=== PATIENT | male | born 1935 | race Caucasian/White ===

== ENCOUNTER 2016-07-29 09:09 | Outpatient (CLI) | payer MEDICARE, OTHER | END 2016-07-29 09:10 | disposition home or self-care (01) | DX: I82.4Z9 Acute embolism and thrombosis of unspecified deep veins of unspecified distal lower extremity (principal); D68.62 Lupus anticoagulant syndrome; I26.99 Other pulmonary embolism without acute cor pulmonale ==

== ENCOUNTER 2016-08-14 10:33 | Outpatient (CLI) | payer MEDICARE, OTHER | END 2016-08-14 10:34 | disposition home or self-care (01) | DX: I26.99 Other pulmonary embolism without acute cor pulmonale (principal); D68.62 Lupus anticoagulant syndrome; I82.4Z9 Acute embolism and thrombosis of unspecified deep veins of unspecified distal lower extremity ==

== ENCOUNTER 2016-09-11 13:18 | Outpatient (CLI) | payer MEDICARE, OTHER | END 2016-09-11 13:19 | disposition home or self-care (01) | DX: I26.99 Other pulmonary embolism without acute cor pulmonale (principal); D68.62 Lupus anticoagulant syndrome; I82.4Z9 Acute embolism and thrombosis of unspecified deep veins of unspecified distal lower extremity ==

== ENCOUNTER 2016-10-09 10:53 | Outpatient (CLI) | payer MEDICARE, OTHER | END 2016-10-09 10:54 | disposition home or self-care (01) | DX: Z79.01 Long term (current) use of anticoagulants (principal); D68.2 Hereditary deficiency of other clotting factors; D68.62 Lupus anticoagulant syndrome; I26.99 Other pulmonary embolism without acute cor pulmonale; I82.4Z9 Acute embolism and thrombosis of unspecified deep veins of unspecified distal lower extremity ==

== ENCOUNTER 2016-11-07 11:24 | Outpatient (CLI) | payer MEDICARE, OTHER | END 2016-11-07 11:25 | disposition home or self-care (01) | LOC: LAB.F 11:24 | DX: D68.2 Hereditary deficiency of other clotting factors (principal); I26.99 Other pulmonary embolism without acute cor pulmonale; D68.62 Lupus anticoagulant syndrome; I82.4Z9 Acute embolism and thrombosis of unspecified deep veins of unspecified distal lower extremity; Z79.01 Long term (current) use of anticoagulants | CPT/HCPCS: 85610 ==

== ENCOUNTER 2016-11-21 09:40 | Outpatient (CLI) | payer MEDICARE, OTHER | END 2016-11-21 09:41 | disposition home or self-care (01) | LOC: LAB.F 09:40 | DX: D68.2 Hereditary deficiency of other clotting factors (principal); I26.99 Other pulmonary embolism without acute cor pulmonale; D68.62 Lupus anticoagulant syndrome; I82.4Z9 Acute embolism and thrombosis of unspecified deep veins of unspecified distal lower extremity; Z79.01 Long term (current) use of anticoagulants | CPT/HCPCS: 85610 ==

== ENCOUNTER 2016-12-04 11:12 | Outpatient (CLI) | payer MEDICARE, OTHER | END 2016-12-04 11:13 | disposition home or self-care (01) | LOC: LAB.F 11:12 | DX: D68.2 Hereditary deficiency of other clotting factors (principal); D68.62 Lupus anticoagulant syndrome; I26.99 Other pulmonary embolism without acute cor pulmonale; I82.4Z9 Acute embolism and thrombosis of unspecified deep veins of unspecified distal lower extremity; Z79.01 Long term (current) use of anticoagulants | CPT/HCPCS: 85610 ==

== ENCOUNTER 2017-01-02 11:12 | Outpatient (CLI) | payer MEDICARE, OTHER | END 2017-01-02 11:13 | disposition home or self-care (01) | LOC: LAB.F 11:12 | DX: D68.2 Hereditary deficiency of other clotting factors (principal); D68.62 Lupus anticoagulant syndrome; I26.99 Other pulmonary embolism without acute cor pulmonale; I82.4Z9 Acute embolism and thrombosis of unspecified deep veins of unspecified distal lower extremity; Z79.01 Long term (current) use of anticoagulants | CPT/HCPCS: 85610 ==

== ENCOUNTER 2017-02-04 15:13 | Outpatient (CLI) | payer MEDICARE, OTHER | END 2017-02-04 15:14 | disposition home or self-care (01) | LOC: LAB.F 15:13 | DX: D68.2 Hereditary deficiency of other clotting factors (principal); D68.62 Lupus anticoagulant syndrome; I26.99 Other pulmonary embolism without acute cor pulmonale; I82.4Z9 Acute embolism and thrombosis of unspecified deep veins of unspecified distal lower extremity; Z79.01 Long term (current) use of anticoagulants | CPT/HCPCS: 85610 ==

== ENCOUNTER 2017-04-08 11:11 | Outpatient (CLI) | payer MEDICARE, OTHER | END 2017-04-08 11:12 | disposition home or self-care (01) | LOC: LAB.F 11:11 | DX: D68.2 Hereditary deficiency of other clotting factors (principal); D68.62 Lupus anticoagulant syndrome; I26.99 Other pulmonary embolism without acute cor pulmonale; I82.4Z9 Acute embolism and thrombosis of unspecified deep veins of unspecified distal lower extremity; Z79.01 Long term (current) use of anticoagulants | CPT/HCPCS: 85610 ==

== ENCOUNTER 2017-05-29 08:00 | Outpatient (CLI) | payer MEDICARE, OTHER | END 2017-05-29 08:01 | disposition home or self-care (01) | LOC: LAB.F 08:00 | PROVIDERS: ATTEND Pharmacist | DX: D68.2 Hereditary deficiency of other clotting factors (principal); Z79.01 Long term (current) use of anticoagulants; D68.62 Lupus anticoagulant syndrome; I26.99 Other pulmonary embolism without acute cor pulmonale; I82.4Z9 Acute embolism and thrombosis of unspecified deep veins of unspecified distal lower extremity | CPT/HCPCS: 85610 ==

== ENCOUNTER 2017-07-23 11:25 | Outpatient (CLI) | payer MEDICARE, OTHER | END 2017-07-23 11:26 | disposition home or self-care (01) | LOC: LAB.F 11:25 | PROVIDERS: ATTEND Pharmacist | DX: D68.2 Hereditary deficiency of other clotting factors (principal); D68.62 Lupus anticoagulant syndrome; I26.99 Other pulmonary embolism without acute cor pulmonale; I82.4Z9 Acute embolism and thrombosis of unspecified deep veins of unspecified distal lower extremity; Z79.01 Long term (current) use of anticoagulants | CPT/HCPCS: 85610 ==

== ENCOUNTER 2017-09-02 11:27 | Outpatient (CLI) | payer MEDICARE, OTHER | END 2017-09-02 11:28 | disposition home or self-care (01) | LOC: LAB.F 11:27 | PROVIDERS: ATTEND Student in an Organized Health Care Education/Training Program | DX: D68.2 Hereditary deficiency of other clotting factors (principal); D68.62 Lupus anticoagulant syndrome; I26.99 Other pulmonary embolism without acute cor pulmonale; I82.4Z9 Acute embolism and thrombosis of unspecified deep veins of unspecified distal lower extremity; Z79.01 Long term (current) use of anticoagulants | CPT/HCPCS: 85610 ==

== ENCOUNTER 2017-10-10 13:16 | Outpatient (CLI) | payer MEDICARE, OTHER | END 2017-10-10 13:17 | disposition home or self-care (01) | LOC: LAB.F 13:16 | PROVIDERS: ATTEND Pharmacist | DX: D68.2 Hereditary deficiency of other clotting factors (principal); D68.62 Lupus anticoagulant syndrome; I26.99 Other pulmonary embolism without acute cor pulmonale; I82.4Z9 Acute embolism and thrombosis of unspecified deep veins of unspecified distal lower extremity; Z79.01 Long term (current) use of anticoagulants | CPT/HCPCS: 85610 ==

== ENCOUNTER 2017-10-23 10:55 | Outpatient (CLI) | payer MEDICARE, OTHER | END 2017-10-23 10:56 | disposition home or self-care (01) | LOC: LAB.F 10:55 | PROVIDERS: ATTEND Pharmacist | DX: I26.99 Other pulmonary embolism without acute cor pulmonale (principal); D68.2 Hereditary deficiency of other clotting factors; D68.62 Lupus anticoagulant syndrome; I82.4Z9 Acute embolism and thrombosis of unspecified deep veins of unspecified distal lower extremity; Z79.01 Long term (current) use of anticoagulants | CPT/HCPCS: 85610 ==

== ENCOUNTER 2017-11-21 11:53 | Outpatient (CLI) | payer MEDICARE, OTHER | END 2017-11-21 11:54 | disposition home or self-care (01) | LOC: LAB.F 11:53 | PROVIDERS: ATTEND Pharmacist | DX: I26.99 Other pulmonary embolism without acute cor pulmonale (principal); D68.2 Hereditary deficiency of other clotting factors; D68.62 Lupus anticoagulant syndrome; I82.4Z9 Acute embolism and thrombosis of unspecified deep veins of unspecified distal lower extremity; Z79.01 Long term (current) use of anticoagulants | CPT/HCPCS: 85610 ==

== ENCOUNTER 2017-12-19 10:03 | Outpatient (CLI) | payer MEDICARE, OTHER | END 2017-12-19 10:04 | disposition home or self-care (01) | LOC: LAB.F 10:03 | PROVIDERS: ATTEND Pharmacist | DX: D68.2 Hereditary deficiency of other clotting factors (principal); Z79.01 Long term (current) use of anticoagulants; D68.62 Lupus anticoagulant syndrome; I26.99 Other pulmonary embolism without acute cor pulmonale; I82.4Z9 Acute embolism and thrombosis of unspecified deep veins of unspecified distal lower extremity | CPT/HCPCS: 85610 ==

== ENCOUNTER 2018-02-20 13:47 | Outpatient (CLI) | payer MEDICARE, OTHER | END 2018-02-20 13:48 | disposition home or self-care (01) | LOC: LAB.F 13:47 | PROVIDERS: ATTEND Pharmacist | DX: D68.2 Hereditary deficiency of other clotting factors (principal); Z79.01 Long term (current) use of anticoagulants; D68.62 Lupus anticoagulant syndrome; I26.99 Other pulmonary embolism without acute cor pulmonale; I82.4Z9 Acute embolism and thrombosis of unspecified deep veins of unspecified distal lower extremity | CPT/HCPCS: 85610 ==

== ENCOUNTER 2018-04-13 09:33 | Outpatient (CLI) | payer MEDICARE, OTHER | END 2018-04-13 09:34 | disposition home or self-care (01) | LOC: LAB.F 09:33 | PROVIDERS: ATTEND Pharmacist | DX: D68.2 Hereditary deficiency of other clotting factors (principal); D68.62 Lupus anticoagulant syndrome; I26.99 Other pulmonary embolism without acute cor pulmonale; I82.4Z9 Acute embolism and thrombosis of unspecified deep veins of unspecified distal lower extremity; Z79.01 Long term (current) use of anticoagulants | CPT/HCPCS: 85610 ==

== ENCOUNTER 2018-04-15 08:43 | Outpatient (CLI) | payer MEDICARE, OTHER | END 2018-04-15 08:44 | disposition home or self-care (01) | LOC: LAB.F 08:43 | PROVIDERS: ATTEND Pharmacist | DX: D68.2 Hereditary deficiency of other clotting factors (principal); D68.62 Lupus anticoagulant syndrome; Z79.01 Long term (current) use of anticoagulants; I26.99 Other pulmonary embolism without acute cor pulmonale; I82.4Z9 Acute embolism and thrombosis of unspecified deep veins of unspecified distal lower extremity | CPT/HCPCS: 85610 ==

== ENCOUNTER 2018-04-22 08:40 | Outpatient (CLI) | payer MEDICARE, OTHER | END 2018-04-22 08:41 | disposition home or self-care (01) | LOC: LAB.F 08:40 | PROVIDERS: ATTEND Pharmacist | DX: D68.2 Hereditary deficiency of other clotting factors (principal); Z79.01 Long term (current) use of anticoagulants; I26.99 Other pulmonary embolism without acute cor pulmonale; I82.4Z9 Acute embolism and thrombosis of unspecified deep veins of unspecified distal lower extremity | CPT/HCPCS: 85610 ==

== ENCOUNTER 2018-05-28 10:16 | Outpatient (CLI) | payer MEDICARE, OTHER | END 2018-05-28 10:17 | disposition home or self-care (01) | LOC: LAB.F 10:16 | PROVIDERS: ATTEND Pharmacist | DX: D68.2 Hereditary deficiency of other clotting factors (principal); D68.62 Lupus anticoagulant syndrome; I26.99 Other pulmonary embolism without acute cor pulmonale; I82.4Z9 Acute embolism and thrombosis of unspecified deep veins of unspecified distal lower extremity; Z79.01 Long term (current) use of anticoagulants | CPT/HCPCS: 85610 ==

== ENCOUNTER 2018-06-24 08:33 | Outpatient (CLI) | payer MEDICARE, OTHER | END 2018-06-24 08:34 | disposition home or self-care (01) | LOC: LAB.F 08:33 | PROVIDERS: ATTEND Pharmacist | DX: D68.2 Hereditary deficiency of other clotting factors (principal); Z79.01 Long term (current) use of anticoagulants; D68.62 Lupus anticoagulant syndrome; I26.99 Other pulmonary embolism without acute cor pulmonale; I82.4Z9 Acute embolism and thrombosis of unspecified deep veins of unspecified distal lower extremity | CPT/HCPCS: 85610 ==

== ENCOUNTER 2018-07-28 11:07 | Outpatient (CLI) | payer MEDICARE, OTHER | END 2018-07-28 11:08 | disposition home or self-care (01) | LOC: LAB.F 11:07 | PROVIDERS: ATTEND Pharmacist | DX: D68.2 Hereditary deficiency of other clotting factors (principal); D68.62 Lupus anticoagulant syndrome; I26.99 Other pulmonary embolism without acute cor pulmonale; I82.4Z9 Acute embolism and thrombosis of unspecified deep veins of unspecified distal lower extremity; Z79.01 Long term (current) use of anticoagulants | CPT/HCPCS: 85610 ==

== ENCOUNTER 2018-09-23 11:29 | Outpatient (CLI) | payer MEDICARE, OTHER | END 2018-09-23 11:30 | disposition home or self-care (01) | LOC: LAB.F 11:29 | PROVIDERS: ATTEND Pharmacist | DX: D68.2 Hereditary deficiency of other clotting factors (principal); D68.62 Lupus anticoagulant syndrome; I26.99 Other pulmonary embolism without acute cor pulmonale; I82.4Z9 Acute embolism and thrombosis of unspecified deep veins of unspecified distal lower extremity; Z79.01 Long term (current) use of anticoagulants | CPT/HCPCS: 85610 ==

== ENCOUNTER 2018-11-17 09:07 | Outpatient (CLI) | payer MEDICARE, OTHER | END 2018-11-17 09:08 | disposition home or self-care (01) | LOC: LAB.F 09:07 | PROVIDERS: ATTEND Pharmacist | DX: D68.2 Hereditary deficiency of other clotting factors (principal); D68.62 Lupus anticoagulant syndrome; I26.99 Other pulmonary embolism without acute cor pulmonale; I82.4Z9 Acute embolism and thrombosis of unspecified deep veins of unspecified distal lower extremity; Z79.01 Long term (current) use of anticoagulants | CPT/HCPCS: 85610 ==

== ENCOUNTER 2018-11-30 07:42 | Outpatient (CLI) | payer MEDICARE, OTHER | END 2018-11-30 07:43 | disposition home or self-care (01) | LOC: LAB.F 07:42 | PROVIDERS: ATTEND Pharmacist | DX: D68.2 Hereditary deficiency of other clotting factors (principal); D68.62 Lupus anticoagulant syndrome; I26.99 Other pulmonary embolism without acute cor pulmonale; I82.4Z9 Acute embolism and thrombosis of unspecified deep veins of unspecified distal lower extremity; Z79.01 Long term (current) use of anticoagulants | CPT/HCPCS: 85610 ==

== ENCOUNTER 2018-12-01 07:20 | Outpatient (CLI) | payer MEDICARE, OTHER | END 2018-12-01 07:21 | disposition home or self-care (01) | LOC: LAB.F 07:20 | PROVIDERS: ATTEND Pharmacist | DX: D68.2 Hereditary deficiency of other clotting factors (principal); D68.62 Lupus anticoagulant syndrome; I26.99 Other pulmonary embolism without acute cor pulmonale; I82.4Z9 Acute embolism and thrombosis of unspecified deep veins of unspecified distal lower extremity; Z79.01 Long term (current) use of anticoagulants | CPT/HCPCS: 85610 ==

== ENCOUNTER 2018-12-02 07:57 | Outpatient (CLI) | payer MEDICARE, OTHER | END 2018-12-02 07:58 | disposition home or self-care (01) | LOC: LAB.F 07:57 | PROVIDERS: ATTEND Pharmacist | DX: D68.2 Hereditary deficiency of other clotting factors (principal); D68.62 Lupus anticoagulant syndrome; I26.99 Other pulmonary embolism without acute cor pulmonale; I82.4Z9 Acute embolism and thrombosis of unspecified deep veins of unspecified distal lower extremity; Z79.01 Long term (current) use of anticoagulants | CPT/HCPCS: 85610 ==

== ENCOUNTER 2018-12-03 08:00 | Outpatient (CLI) | payer MEDICARE, OTHER | END 2018-12-03 23:59 | disposition home or self-care (01) | LOC: LAB.F 08:00 | PROVIDERS: ATTEND Pharmacist | DX: D68.2 Hereditary deficiency of other clotting factors (principal); D68.62 Lupus anticoagulant syndrome; I26.99 Other pulmonary embolism without acute cor pulmonale; I82.4Z9 Acute embolism and thrombosis of unspecified deep veins of unspecified distal lower extremity; Z79.01 Long term (current) use of anticoagulants | CPT/HCPCS: 85610 ==

== ENCOUNTER 2018-12-16 13:25 | Outpatient (CLI) | payer MEDICARE, OTHER | END 2018-12-16 13:26 | disposition home or self-care (01) | LOC: LAB.F 13:25 | PROVIDERS: ATTEND Pharmacist | DX: D68.2 Hereditary deficiency of other clotting factors (principal); D68.62 Lupus anticoagulant syndrome; I26.99 Other pulmonary embolism without acute cor pulmonale; I82.4Z9 Acute embolism and thrombosis of unspecified deep veins of unspecified distal lower extremity; Z79.01 Long term (current) use of anticoagulants | CPT/HCPCS: 85610 ==

== ENCOUNTER 2018-12-30 10:23 | Outpatient (CLI) | payer MEDICARE, OTHER | END 2018-12-30 10:24 | disposition home or self-care (01) | LOC: LAB.S 10:23 | PROVIDERS: ATTEND Student in an Organized Health Care Education/Training Program | DX: D68.2 Hereditary deficiency of other clotting factors (principal); D68.62 Lupus anticoagulant syndrome; I26.99 Other pulmonary embolism without acute cor pulmonale; I82.4Z9 Acute embolism and thrombosis of unspecified deep veins of unspecified distal lower extremity; Z79.01 Long term (current) use of anticoagulants | CPT/HCPCS: 85610 ==

== ENCOUNTER 2019-01-04 08:12 | Outpatient (CLI) | payer MEDICARE, OTHER | END 2019-01-04 08:13 | disposition home or self-care (01) | LOC: LAB.S 08:12 | PROVIDERS: ATTEND Student in an Organized Health Care Education/Training Program | DX: D68.2 Hereditary deficiency of other clotting factors (principal); D68.62 Lupus anticoagulant syndrome; I26.99 Other pulmonary embolism without acute cor pulmonale; I82.4Z9 Acute embolism and thrombosis of unspecified deep veins of unspecified distal lower extremity; Z79.01 Long term (current) use of anticoagulants | CPT/HCPCS: 85610 ==

== ENCOUNTER 2019-01-13 11:28 | Outpatient (CLI) | payer MEDICARE, OTHER | END 2019-01-13 11:29 | disposition home or self-care (01) | LOC: LAB.S 11:28 | PROVIDERS: ATTEND Pharmacist | DX: D68.2 Hereditary deficiency of other clotting factors (principal); D68.62 Lupus anticoagulant syndrome; I26.99 Other pulmonary embolism without acute cor pulmonale; I82.4Z9 Acute embolism and thrombosis of unspecified deep veins of unspecified distal lower extremity; Z79.01 Long term (current) use of anticoagulants | CPT/HCPCS: 85610 ==

== ENCOUNTER 2019-02-12 10:12 | Outpatient (CLI) | payer MEDICARE, OTHER | END 2019-02-12 10:13 | disposition home or self-care (01) | LOC: LAB.S 10:12 | PROVIDERS: ATTEND Pharmacist | DX: D68.2 Hereditary deficiency of other clotting factors (principal); D68.62 Lupus anticoagulant syndrome; I26.99 Other pulmonary embolism without acute cor pulmonale; I82.4Z9 Acute embolism and thrombosis of unspecified deep veins of unspecified distal lower extremity; Z79.01 Long term (current) use of anticoagulants | CPT/HCPCS: 85610 ==

== ENCOUNTER 2019-03-03 13:31 | Outpatient (CLI) | payer MEDICARE, OTHER | END 2019-03-03 13:32 | disposition home or self-care (01) | LOC: LAB.S 13:31 | PROVIDERS: ATTEND Pharmacist | DX: D68.2 Hereditary deficiency of other clotting factors (principal); D68.62 Lupus anticoagulant syndrome; I26.99 Other pulmonary embolism without acute cor pulmonale; I82.4Z9 Acute embolism and thrombosis of unspecified deep veins of unspecified distal lower extremity; Z79.01 Long term (current) use of anticoagulants | CPT/HCPCS: 85610 ==

== ENCOUNTER 2019-03-22 09:30 | Outpatient (CLI) | payer MEDICARE, OTHER | END 2019-03-22 09:31 | disposition home or self-care (01) | LOC: LAB.S 09:30 | PROVIDERS: ATTEND Pharmacist | DX: D68.2 Hereditary deficiency of other clotting factors (principal); I26.99 Other pulmonary embolism without acute cor pulmonale; I82.4Z9 Acute embolism and thrombosis of unspecified deep veins of unspecified distal lower extremity; Z79.01 Long term (current) use of anticoagulants | CPT/HCPCS: 85610 ==

== ENCOUNTER 2019-04-05 09:01 | Outpatient (CLI) | payer MEDICARE, OTHER | END 2019-04-05 09:02 | disposition home or self-care (01) | LOC: LAB.S 09:01 | PROVIDERS: ATTEND Pharmacist | DX: D68.2 Hereditary deficiency of other clotting factors (principal); D68.62 Lupus anticoagulant syndrome; I26.99 Other pulmonary embolism without acute cor pulmonale; I82.4Z9 Acute embolism and thrombosis of unspecified deep veins of unspecified distal lower extremity; Z79.01 Long term (current) use of anticoagulants | CPT/HCPCS: 85610 ==

== ENCOUNTER 2019-05-04 09:06 | Outpatient (CLI) | payer MEDICARE, OTHER | END 2019-05-04 09:07 | disposition home or self-care (01) | LOC: LAB.S 09:06 | PROVIDERS: ATTEND Pharmacist | DX: D68.2 Hereditary deficiency of other clotting factors (principal); D68.62 Lupus anticoagulant syndrome; I26.99 Other pulmonary embolism without acute cor pulmonale; I82.4Z9 Acute embolism and thrombosis of unspecified deep veins of unspecified distal lower extremity; Z79.01 Long term (current) use of anticoagulants | CPT/HCPCS: 85610 ==

== ENCOUNTER 2019-06-01 09:21 | Outpatient (CLI) | payer MEDICARE, OTHER | END 2019-06-01 09:22 | disposition home or self-care (01) | LOC: LAB.S 09:21 | PROVIDERS: ATTEND Pharmacist | DX: D68.2 Hereditary deficiency of other clotting factors (principal); D68.62 Lupus anticoagulant syndrome; I26.99 Other pulmonary embolism without acute cor pulmonale; I82.4Z9 Acute embolism and thrombosis of unspecified deep veins of unspecified distal lower extremity; Z79.01 Long term (current) use of anticoagulants | CPT/HCPCS: 85610 ==

== ENCOUNTER 2019-07-06 08:00 | Outpatient (CLI) | payer MEDICARE, OTHER | END 2019-07-06 23:59 | disposition home or self-care (01) | LOC: LAB.S 08:00 | PROVIDERS: ATTEND Pharmacist | DX: D68.2 Hereditary deficiency of other clotting factors (principal); D68.62 Lupus anticoagulant syndrome; I26.99 Other pulmonary embolism without acute cor pulmonale; I82.4Z9 Acute embolism and thrombosis of unspecified deep veins of unspecified distal lower extremity; Z79.01 Long term (current) use of anticoagulants | CPT/HCPCS: 85610 ==

== ENCOUNTER 2019-07-20 10:06 | Outpatient (CLI) | payer MEDICARE, OTHER | END 2019-07-20 10:07 | disposition home or self-care (01) | LOC: LAB.S 10:06 | PROVIDERS: ATTEND Pharmacist | DX: D68.2 Hereditary deficiency of other clotting factors (principal); D68.62 Lupus anticoagulant syndrome; I26.99 Other pulmonary embolism without acute cor pulmonale; I82.4Z9 Acute embolism and thrombosis of unspecified deep veins of unspecified distal lower extremity; Z79.01 Long term (current) use of anticoagulants | CPT/HCPCS: 85610 ==

== ENCOUNTER 2019-08-05 08:00 | Outpatient (CLI) | payer MEDICARE, OTHER | END 2019-08-05 23:59 | disposition home or self-care (01) | LOC: LAB.S 08:00 | PROVIDERS: ATTEND Pharmacist | DX: D68.2 Hereditary deficiency of other clotting factors (principal); D68.62 Lupus anticoagulant syndrome; I26.99 Other pulmonary embolism without acute cor pulmonale; I82.4Z9 Acute embolism and thrombosis of unspecified deep veins of unspecified distal lower extremity; Z79.01 Long term (current) use of anticoagulants | CPT/HCPCS: 85610 ==

== ENCOUNTER 2019-10-04 13:16 | Outpatient (CLI) | payer MEDICARE, OTHER | END 2019-10-04 13:17 | disposition home or self-care (01) | LOC: LAB 13:16 | PROVIDERS: ATTEND Pharmacist | DX: D68.2 Hereditary deficiency of other clotting factors (principal); D68.62 Lupus anticoagulant syndrome; I26.99 Other pulmonary embolism without acute cor pulmonale; I82.4Z9 Acute embolism and thrombosis of unspecified deep veins of unspecified distal lower extremity; Z79.01 Long term (current) use of anticoagulants | CPT/HCPCS: 85610 ==

== ENCOUNTER 2019-11-03 07:42 | Outpatient (CLI) | payer MEDICARE, OTHER | END 2019-11-03 07:43 | disposition home or self-care (01) | LOC: LAB 07:42 | PROVIDERS: ATTEND Pharmacist | DX: D68.2 Hereditary deficiency of other clotting factors (principal); D68.62 Lupus anticoagulant syndrome; I26.99 Other pulmonary embolism without acute cor pulmonale; I82.4Z9 Acute embolism and thrombosis of unspecified deep veins of unspecified distal lower extremity; Z79.01 Long term (current) use of anticoagulants | CPT/HCPCS: 85610 ==

== ENCOUNTER 2020-01-11 11:50 | Outpatient (CLI) | payer MEDICARE, OTHER ==
[2020-01-11 12:22] LABS: CALCIUM 8.1 mg/dL (8.5-10.3); CREATININE 1.1 mg/dL (0.6-1.2)
== END 2020-01-11 11:51 | disposition home or self-care (01) ==
LOC: LAB 11:50
PROVIDERS: ATTEND Pharmacist Ambulatory Care
DX: D68.2 Hereditary deficiency of other clotting factors (principal); D68.62 Lupus anticoagulant syndrome; Z79.01 Long term (current) use of anticoagulants; I26.99 Other pulmonary embolism without acute cor pulmonale; I82.4Z9 Acute embolism and thrombosis of unspecified deep veins of unspecified distal lower extremity
CPT/HCPCS: 36415; 80048; 85610

== ENCOUNTER 2020-01-21 10:09 | Outpatient (CLI) | payer MEDICARE, OTHER | END 2020-01-21 10:10 | disposition home or self-care (01) | LOC: LAB.S 10:09 | PROVIDERS: ATTEND Pharmacist Ambulatory Care | DX: D68.2 Hereditary deficiency of other clotting factors (principal); D68.62 Lupus anticoagulant syndrome; I26.99 Other pulmonary embolism without acute cor pulmonale; I82.4Z9 Acute embolism and thrombosis of unspecified deep veins of unspecified distal lower extremity; Z79.01 Long term (current) use of anticoagulants | CPT/HCPCS: 85610 ==

== ENCOUNTER 2020-01-26 08:34 | Outpatient (CLI) | payer MEDICARE, OTHER | END 2020-01-26 08:35 | disposition home or self-care (01) | LOC: LAB.S 08:34 | PROVIDERS: ATTEND Pharmacist Ambulatory Care | DX: D68.2 Hereditary deficiency of other clotting factors (principal); D68.62 Lupus anticoagulant syndrome; I26.99 Other pulmonary embolism without acute cor pulmonale; I82.4Z9 Acute embolism and thrombosis of unspecified deep veins of unspecified distal lower extremity; Z79.01 Long term (current) use of anticoagulants | CPT/HCPCS: 85610 ==

== ENCOUNTER 2020-02-21 11:38 | Outpatient (CLI) | payer MEDICARE, OTHER | END 2020-02-21 11:39 | disposition home or self-care (01) | LOC: LAB.S 11:38 | PROVIDERS: ATTEND Pharmacist Ambulatory Care | DX: D68.2 Hereditary deficiency of other clotting factors (principal); D68.62 Lupus anticoagulant syndrome; I26.99 Other pulmonary embolism without acute cor pulmonale; I82.4Z9 Acute embolism and thrombosis of unspecified deep veins of unspecified distal lower extremity; Z79.01 Long term (current) use of anticoagulants | CPT/HCPCS: 85610 ==

== ENCOUNTER 2020-03-15 12:06 | Outpatient (CLI) | payer MEDICARE, OTHER | END 2020-03-15 12:07 | disposition home or self-care (01) | LOC: LAB.S 12:06 | PROVIDERS: ATTEND Pharmacist Ambulatory Care | DX: D68.2 Hereditary deficiency of other clotting factors (principal); D68.62 Lupus anticoagulant syndrome; I26.99 Other pulmonary embolism without acute cor pulmonale; I82.4Z9 Acute embolism and thrombosis of unspecified deep veins of unspecified distal lower extremity; Z79.01 Long term (current) use of anticoagulants | CPT/HCPCS: 85610 ==

== ENCOUNTER 2020-04-17 09:53 | Outpatient (CLI) | payer MEDICARE, OTHER | END 2020-04-17 09:54 | disposition home or self-care (01) | LOC: LAB.S 09:53 | PROVIDERS: ATTEND Pharmacist Ambulatory Care | DX: D68.2 Hereditary deficiency of other clotting factors (principal); D68.62 Lupus anticoagulant syndrome; I26.99 Other pulmonary embolism without acute cor pulmonale; I82.4Z9 Acute embolism and thrombosis of unspecified deep veins of unspecified distal lower extremity; Z79.01 Long term (current) use of anticoagulants | CPT/HCPCS: 85610 ==

== ENCOUNTER 2020-05-29 07:24 | Outpatient (CLI) | payer MEDICARE, OTHER | END 2020-05-29 07:25 | disposition home or self-care (01) | LOC: LAB.S 07:24 | PROVIDERS: ATTEND Pharmacist Ambulatory Care | DX: D68.2 Hereditary deficiency of other clotting factors (principal); D68.62 Lupus anticoagulant syndrome; I26.99 Other pulmonary embolism without acute cor pulmonale; I82.4Z9 Acute embolism and thrombosis of unspecified deep veins of unspecified distal lower extremity; Z79.01 Long term (current) use of anticoagulants | CPT/HCPCS: 85610 ==

== ENCOUNTER 2020-07-10 14:26 | Outpatient (CLI) | payer MEDICARE, OTHER | END 2020-07-10 14:27 | disposition home or self-care (01) | LOC: LAB.S 14:26 | PROVIDERS: ATTEND Student in an Organized Health Care Education/Training Program | DX: D68.2 Hereditary deficiency of other clotting factors (principal); D68.62 Lupus anticoagulant syndrome; I26.99 Other pulmonary embolism without acute cor pulmonale; I82.4Z9 Acute embolism and thrombosis of unspecified deep veins of unspecified distal lower extremity; Z79.01 Long term (current) use of anticoagulants | CPT/HCPCS: 85610 ==

== ENCOUNTER 2020-08-22 14:35 | Outpatient (CLI) | payer MEDICARE, OTHER | END 2020-08-22 14:36 | disposition home or self-care (01) | LOC: LAB.S 14:35 | PROVIDERS: ATTEND Student in an Organized Health Care Education/Training Program | DX: D68.2 Hereditary deficiency of other clotting factors (principal); D68.62 Lupus anticoagulant syndrome; I26.99 Other pulmonary embolism without acute cor pulmonale; I82.4Z9 Acute embolism and thrombosis of unspecified deep veins of unspecified distal lower extremity; Z79.01 Long term (current) use of anticoagulants | CPT/HCPCS: 85610 ==

== ENCOUNTER 2020-09-11 09:03 | Outpatient (CLI) | payer MEDICARE, OTHER | END 2020-09-11 09:04 | disposition home or self-care (01) | LOC: LAB.S 09:03 | PROVIDERS: ATTEND Student in an Organized Health Care Education/Training Program | DX: D68.2 Hereditary deficiency of other clotting factors (principal); I82.4Z9 Acute embolism and thrombosis of unspecified deep veins of unspecified distal lower extremity; I26.99 Other pulmonary embolism without acute cor pulmonale; Z79.01 Long term (current) use of anticoagulants; D68.62 Lupus anticoagulant syndrome | CPT/HCPCS: 85610 ==

== ENCOUNTER 2020-10-05 13:32 | Outpatient (CLI) | payer MEDICARE, OTHER | END 2020-10-05 13:33 | disposition home or self-care (01) | LOC: LAB.S 13:32 | PROVIDERS: ATTEND Student in an Organized Health Care Education/Training Program | DX: D68.2 Hereditary deficiency of other clotting factors (principal); D68.62 Lupus anticoagulant syndrome; I26.99 Other pulmonary embolism without acute cor pulmonale; I82.4Z9 Acute embolism and thrombosis of unspecified deep veins of unspecified distal lower extremity; Z79.01 Long term (current) use of anticoagulants | CPT/HCPCS: 85610 ==

== ENCOUNTER 2020-10-31 10:24 | Outpatient (CLI) | payer MEDICARE, OTHER | END 2020-10-31 10:25 | disposition home or self-care (01) | LOC: LAB.S 10:24 | PROVIDERS: ATTEND Student in an Organized Health Care Education/Training Program | DX: D68.2 Hereditary deficiency of other clotting factors (principal); D68.62 Lupus anticoagulant syndrome; I26.99 Other pulmonary embolism without acute cor pulmonale; I82.4Z9 Acute embolism and thrombosis of unspecified deep veins of unspecified distal lower extremity; Z79.01 Long term (current) use of anticoagulants | CPT/HCPCS: 36416; 85610 ==

== ENCOUNTER 2020-12-07 11:27 | Outpatient (CLI) | payer MEDICARE, OTHER | END 2020-12-07 11:28 | disposition home or self-care (01) | LOC: LAB.S 11:27 | PROVIDERS: ATTEND Student in an Organized Health Care Education/Training Program | DX: D68.2 Hereditary deficiency of other clotting factors (principal); D68.62 Lupus anticoagulant syndrome; I26.99 Other pulmonary embolism without acute cor pulmonale; I82.4Z9 Acute embolism and thrombosis of unspecified deep veins of unspecified distal lower extremity; Z79.01 Long term (current) use of anticoagulants | CPT/HCPCS: 36416; 85610 ==

== ENCOUNTER 2020-12-22 15:30 | Outpatient (CLI) | payer MEDICARE, OTHER | END 2020-12-22 15:31 | disposition home or self-care (01) | LOC: LAB.S 15:30 | PROVIDERS: ATTEND Student in an Organized Health Care Education/Training Program | DX: D68.2 Hereditary deficiency of other clotting factors (principal); D68.62 Lupus anticoagulant syndrome; I82.4Z9 Acute embolism and thrombosis of unspecified deep veins of unspecified distal lower extremity; I26.99 Other pulmonary embolism without acute cor pulmonale; Z79.01 Long term (current) use of anticoagulants | CPT/HCPCS: 85610 ==

== ENCOUNTER 2021-01-11 11:22 | Outpatient (CLI) | payer MEDICARE, OTHER | END 2021-01-11 11:23 | disposition home or self-care (01) | LOC: LAB.S 11:22 | PROVIDERS: ATTEND Student in an Organized Health Care Education/Training Program | DX: D68.2 Hereditary deficiency of other clotting factors (principal); I26.99 Other pulmonary embolism without acute cor pulmonale; I82.4Z9 Acute embolism and thrombosis of unspecified deep veins of unspecified distal lower extremity; Z79.01 Long term (current) use of anticoagulants; D68.62 Lupus anticoagulant syndrome | CPT/HCPCS: 36416; 85610 ==

== ENCOUNTER 2021-02-13 16:01 | Outpatient (CLI) | payer MEDICARE, OTHER | END 2021-02-13 16:02 | disposition home or self-care (01) | LOC: COV 16:01 | PROVIDERS: ATTEND Family Medicine | DX: Z20.822 Contact with and (suspected) exposure to COVID-19 (principal) ==

== ENCOUNTER 2021-02-15 12:02 | Outpatient (CLI) | payer MEDICARE, OTHER | END 2021-02-15 12:03 | disposition home or self-care (01) | LOC: LAB.S 12:02 | PROVIDERS: ATTEND Student in an Organized Health Care Education/Training Program | DX: D68.2 Hereditary deficiency of other clotting factors (principal); D68.62 Lupus anticoagulant syndrome; I26.99 Other pulmonary embolism without acute cor pulmonale; I82.4Z9 Acute embolism and thrombosis of unspecified deep veins of unspecified distal lower extremity; Z79.01 Long term (current) use of anticoagulants | CPT/HCPCS: 36416; 85610 ==

== ENCOUNTER 2021-03-22 13:32 | Outpatient (CLI) | payer MEDICARE, OTHER | END 2021-03-22 13:33 | disposition home or self-care (01) | LOC: LAB.S 13:32 | PROVIDERS: ATTEND Student in an Organized Health Care Education/Training Program | DX: D68.2 Hereditary deficiency of other clotting factors (principal); I27.82 Chronic pulmonary embolism; I48.0 Paroxysmal atrial fibrillation; I82.5Z9 Chronic embolism and thrombosis of unspecified deep veins of unspecified distal lower extremity; D68.62 Lupus anticoagulant syndrome | CPT/HCPCS: 36415; 36416; 80053; 85025; 85520; 85610 ==

== ENCOUNTER 2021-04-20 11:18 | Outpatient (CLI) | payer MEDICARE, OTHER | END 2021-04-20 11:19 | disposition home or self-care (01) | LOC: LAB.S 11:18 | PROVIDERS: ATTEND Pharmacist | DX: Z79.01 Long term (current) use of anticoagulants (principal); D68.2 Hereditary deficiency of other clotting factors; I48.0 Paroxysmal atrial fibrillation; I27.82 Chronic pulmonary embolism; D68.62 Lupus anticoagulant syndrome; I82.5Z9 Chronic embolism and thrombosis of unspecified deep veins of unspecified distal lower extremity | CPT/HCPCS: 36416; 85610 ==

== ENCOUNTER 2021-06-01 08:28 | Outpatient (CLI) | payer MEDICARE, OTHER ==
[2021-06-01 08:59] LABS: INR 1.3 (0.8-1.2); PT - PROTHROMBIN TIME 14.6 secs (9.9-12.6)
== END 2021-06-01 08:29 | disposition home or self-care (01) ==
LOC: LAB 08:28
PROVIDERS: ATTEND Pharmacist
DX: Z79.01 Long term (current) use of anticoagulants (principal); D68.2 Hereditary deficiency of other clotting factors; I48.0 Paroxysmal atrial fibrillation; I27.82 Chronic pulmonary embolism; I82.5Z9 Chronic embolism and thrombosis of unspecified deep veins of unspecified distal lower extremity; D68.62 Lupus anticoagulant syndrome
CPT/HCPCS: 36415; 85610

== ENCOUNTER 2021-06-04 04:12 | Emergency (ER) | payer MEDICARE, OTHER ==
--- NOTE | 2021-06-04 05:25 | ED Physician Documentation ---
History of Present Illness - Stated complaint Stated Complaint: DRAIN TUBE PLUGGED - Chief complaint Chief Complaint: General - History obtained from History obtained from: Patient - History of Present Illness Timing: Yesterday Pain level now: 3 - Additonal information Additional information: patient underwent bilateral mastectomy 6 days ago for breast CA, with bilateral CARL drains in place. He notes the left CARL drain has continued to steadily drain but the right drain stopped draining yesterday afternoon and the right side of his chest has steadily become increasingly swollen, painful, and echymotic. Patient takes warfarin for atrial fibrillation Review of Systems Constitutional: denies: Fever, Chills, Sweats Cardiac: reports: Chest pain / pressure (chest wall pain/swelling). denies: Palpitations Respiratory: reports: Reviewed and negative GI: reports: Reviewed and negative PD PAST MEDICAL HISTORY - Past Medical History Past Medical History: Yes Cardiovascular: Atrial fibrillation Psych: Anxiety Other Past Medical History: Bilat breast CA - Past Surgical History Past Surgical History: Yes General: Appendectomy, Other - Present Medications Home Medications: Ambulatory Orders Medication Instructions Recorded Confirmed Amiodarone HCl 100 mg PO DAILY 06/04/21 06/04/21 Fluoxetine HCl [Prozac] 20 mg PO DAILY 06/04/21 06/04/21 Multivitamin 1 tab PO DAILY 06/04/21 06/04/21 Warfarin [Coumadin] 2.5 mg PO 06/04/21 Warfarin [Coumadin] 5 mg PO 06/04/21 - Allergies Allergies/Adverse Reactions: Allergies Allergy/AdvReac Type Severity Reaction Status Date / Time No Known Drug Allergies Allergy Verified 06/04/21 04:30 - Social History Does the pt smoke?: No Smoking Status: Never smoker Does the pt drink ETOH?: Yes ETOH Use: Liquor Does the pt have substance abuse?: No - Immunizations Immunizations are current?: Yes - POLST Patient has POLST: No PD ED PE NORMAL - Vitals Vital signs reviewed: Yes - General General: Alert and oriented X 3, No acute distress, Well developed/nourished PD ED PE EXPANDED - Cardiac Cardiac: Chest wall TTP (right chest wall is diffusely echymotic, swollen but not tense, with TTP lateral aspect. no erythema, not hot to touch, no fluctuance. CARL drain in place with clotted blood in tubing. left chest CARL drain with serosanguinous drainage in tubing and bulb) Results - Vitals Vitals: Oxygen O2 Source Room air - Labs Labs: Laboratory Tests 06/04/21 06/04/21 05:58 05:58 WBC 8.3 RBC 3.54 L Hgb 11.2 L Hct 33.7 L MCV 95.2 H MCH 31.6 H MCHC 33.2 RDW 13.5 Plt Count 209 MPV 9.2 Neut # (Auto) 6.0 Lymph # (Auto) 1.2 L [place] # (Auto) 0.9 Eos # (Auto) 0.1 Baso # (Auto) 0.1 Absolute Nucleated RBC 0.00 Nucleated RBC % 0.0 PT 25.5 H INR 2.3 H APTT 41.6 H PD MEDICAL DECISION MAKING - ED course Complexity details: reviewed results, re-evaluated patient, considered differential, d/w patient ED course: INR 2.3, hgb 11.1, normal WBC. I stripped the right CARL drain's tubing (patient says he has been trying this man y times), which milked the clot in the tubing into the drain but this did not result in any further output into the drain/tubing. I discussed this case with Dr. Best (oncology at [place], covering for Dr. Mendieta (who had performed the surgery)). Dr. Best says patient has been in contact with him regarding this problem over the past 24 hours; plan is to arrange for expedited follow up within next 1-2 days. Patient is to expect to be contacted by the office later this morning to discuss follow up and I relayed this to the patient. At this time, there is no evidence of infection; there is no tense swelling to suggest imminent risk of skin necrosis. Patient is comfortable with this plan. Dr. Best also recommended HOWIE bandage for compression to effect tamponade, and this was placed by ED RN Departure - Departure Disposition: 01 Home, Self Care Clinical Impression: Postoperative wound hematoma Condition: Good Instructions: ED Hematoma, ED Wound Check Post Op Bleeding Comments: You should receive a call from the oncology office this morning with instruction on timing of follow-up Discharge Date/Time: 06/04/21 06:48
[2021-06-04 06:05] LABS: BASOPHILS # (AUTO) 0.1 10^3/uL (0.0-0.1); EOSINOPHILS # (AUTO) 0.1 10^3/uL (0.0-0.7); EOSINOPHILS % (AUTO) 1.3 %; HCT - HEMATOCRIT 33.7 % (42.0-52.0); HGB - HEMOGLOBIN 11.2 g/dL (14.0-18.0); LYMPHOCYTES # (AUTO) 1.2 10^3/uL (1.5-3.5); LYMPHOCYTES % (AUTO) 14.2 %; MEAN CORPUSCULAR HEMOGLOBIN 31.6 pg (27.0-31.0); MEAN CORPUSCULAR HGB CONC 33.2 g/dL (32.0-36.0); MEAN CORPUSCULAR VOLUME 95.2 fL (80.0-94.0); MEAN PLATELET VOLUME 9.2 fL (7.4-11.4); MONOCYTES # (AUTO) 0.9 10^3/uL (0.0-1.0); MONOCYTES % (AUTO) 11.3 %; NEUTROPHILS % (AUTO) 71.8 %; PLT - PLATELET COUNT 209 10^3/uL (130-450); RED BLOOD COUNT 3.54 10^6/uL (4.70-6.10); RED CELL DISTRIBUTION WIDTH 13.5 % (12.0-15.0); WHITE BLOOD COUNT 8.3 x10^3/uL (4.8-10.8)
[2021-06-04 06:10] LABS: INR 2.3 (0.8-1.2); PT - PROTHROMBIN TIME 25.5 secs (9.9-12.6)
[2021-06-04 06:17] LABS: PARTIAL THROMBOPLASTIN TIME 41.6 secs (24.9-33.3)
[2021-06-04 06:40] VITALS: BP 137/76
== END 2021-06-04 06:48 | disposition home or self-care (01) ==
LOC: ED 04:12
DX: L76.32 Postprocedural hematoma of skin and subcutaneous tissue following other procedure (principal); Y83.8 Other surgical procedures as the cause of abnormal reaction of the patient, or of later complication, without mention of misadventure at the time of the procedure; I48.91 Unspecified atrial fibrillation; Z79.01 Long term (current) use of anticoagulants
CPT/HCPCS: 36415; 85025; 85610; 85730; 99282; 99283

== ENCOUNTER 2021-06-11 09:58 | Outpatient (CLI) | payer MEDICARE, OTHER | END 2021-06-11 09:59 | disposition home or self-care (01) | LOC: LAB.S 09:58 | PROVIDERS: ATTEND Pharmacist | DX: Z79.01 Long term (current) use of anticoagulants (principal); D68.2 Hereditary deficiency of other clotting factors; I48.0 Paroxysmal atrial fibrillation; I27.82 Chronic pulmonary embolism; I82.5Z9 Chronic embolism and thrombosis of unspecified deep veins of unspecified distal lower extremity; D68.62 Lupus anticoagulant syndrome | CPT/HCPCS: 36416; 85610 ==

== ENCOUNTER 2021-06-14 12:25 | Outpatient (CLI) | payer MEDICARE, OTHER | END 2021-06-14 12:26 | disposition home or self-care (01) | LOC: LAB 12:25 | PROVIDERS: ATTEND Pharmacist | DX: Z79.01 Long term (current) use of anticoagulants (principal); D68.2 Hereditary deficiency of other clotting factors; I48.0 Paroxysmal atrial fibrillation; I27.82 Chronic pulmonary embolism; I82.5Z9 Chronic embolism and thrombosis of unspecified deep veins of unspecified distal lower extremity; D68.62 Lupus anticoagulant syndrome | CPT/HCPCS: 36416; 85610 ==

== ENCOUNTER 2021-06-18 08:45 | Outpatient (CLI) | payer MEDICARE, OTHER | END 2021-06-18 08:46 | disposition home or self-care (01) | LOC: LAB.S 08:45 | PROVIDERS: ATTEND Pharmacist | DX: Z79.01 Long term (current) use of anticoagulants (principal); D68.2 Hereditary deficiency of other clotting factors; I48.0 Paroxysmal atrial fibrillation; I27.82 Chronic pulmonary embolism; I82.5Z9 Chronic embolism and thrombosis of unspecified deep veins of unspecified distal lower extremity; D68.62 Lupus anticoagulant syndrome | CPT/HCPCS: 36416; 85610 ==

== ENCOUNTER 2021-06-25 10:40 | Outpatient (CLI) | payer MEDICARE, OTHER | END 2021-06-25 10:41 | disposition home or self-care (01) | LOC: LAB.S 10:40 | PROVIDERS: ATTEND Pharmacist | DX: Z79.01 Long term (current) use of anticoagulants (principal); D68.2 Hereditary deficiency of other clotting factors; I48.0 Paroxysmal atrial fibrillation; I27.82 Chronic pulmonary embolism; I82.5Z9 Chronic embolism and thrombosis of unspecified deep veins of unspecified distal lower extremity; D68.62 Lupus anticoagulant syndrome | CPT/HCPCS: 36416; 85610 ==

== ENCOUNTER 2021-07-05 14:34 | Outpatient (CLI) | payer MEDICARE, OTHER | END 2021-07-05 14:35 | disposition home or self-care (01) | LOC: LAB.S 14:34 | PROVIDERS: ATTEND Pharmacist | DX: Z79.01 Long term (current) use of anticoagulants (principal); D68.2 Hereditary deficiency of other clotting factors; I48.0 Paroxysmal atrial fibrillation; I27.82 Chronic pulmonary embolism; I82.5Z9 Chronic embolism and thrombosis of unspecified deep veins of unspecified distal lower extremity; D68.62 Lupus anticoagulant syndrome | CPT/HCPCS: 36416; 85610 ==

== ENCOUNTER 2021-08-02 12:23 | Outpatient (CLI) | payer MEDICARE, OTHER | END 2021-08-02 12:24 | disposition home or self-care (01) | LOC: LAB.S 12:23 | PROVIDERS: ATTEND Pharmacist | DX: Z79.01 Long term (current) use of anticoagulants (principal); D68.2 Hereditary deficiency of other clotting factors; I48.0 Paroxysmal atrial fibrillation; I27.82 Chronic pulmonary embolism; I82.5Z9 Chronic embolism and thrombosis of unspecified deep veins of unspecified distal lower extremity; D68.62 Lupus anticoagulant syndrome | CPT/HCPCS: 36416; 85610 ==

== ENCOUNTER 2021-08-30 10:18 | Outpatient (CLI) | payer MEDICARE, OTHER | END 2021-08-30 10:19 | disposition home or self-care (01) | LOC: LAB.S 10:18 | PROVIDERS: ATTEND Pharmacist | DX: D68.2 Hereditary deficiency of other clotting factors (principal); Z79.01 Long term (current) use of anticoagulants; I48.0 Paroxysmal atrial fibrillation; I27.82 Chronic pulmonary embolism; I82.5Z9 Chronic embolism and thrombosis of unspecified deep veins of unspecified distal lower extremity; D68.62 Lupus anticoagulant syndrome | CPT/HCPCS: 36416; 85610 ==

== ENCOUNTER 2021-09-20 12:04 | Outpatient (CLI) | payer MEDICARE, OTHER | END 2021-09-20 12:05 | disposition home or self-care (01) | LOC: LAB.S 12:04 | DX: D68.2 Hereditary deficiency of other clotting factors (principal); Z79.01 Long term (current) use of anticoagulants; I48.0 Paroxysmal atrial fibrillation; I27.82 Chronic pulmonary embolism; I82.5Z9 Chronic embolism and thrombosis of unspecified deep veins of unspecified distal lower extremity; D68.62 Lupus anticoagulant syndrome | CPT/HCPCS: 36416; 85610 ==

== ENCOUNTER 2021-10-18 12:18 | Outpatient (CLI) | payer MEDICARE, OTHER | END 2021-10-18 12:19 | disposition home or self-care (01) | LOC: LAB.S 12:18 | PROVIDERS: ATTEND Pharmacist | DX: Z79.01 Long term (current) use of anticoagulants (principal); D68.2 Hereditary deficiency of other clotting factors; I48.0 Paroxysmal atrial fibrillation; I27.82 Chronic pulmonary embolism; I82.529 Chronic embolism and thrombosis of unspecified iliac vein; D68.62 Lupus anticoagulant syndrome | CPT/HCPCS: 36416; 85610 ==

== ENCOUNTER 2021-11-15 09:21 | Outpatient (CLI) | payer MEDICARE, OTHER | END 2021-11-15 09:22 | disposition home or self-care (01) | LOC: LAB.S 09:21 | PROVIDERS: ATTEND Pharmacist | DX: D68.2 Hereditary deficiency of other clotting factors (principal); I48.0 Paroxysmal atrial fibrillation; I27.82 Chronic pulmonary embolism; D68.62 Lupus anticoagulant syndrome; I82.5Z9 Chronic embolism and thrombosis of unspecified deep veins of unspecified distal lower extremity; Z79.01 Long term (current) use of anticoagulants | CPT/HCPCS: 36416; 85610 ==

== ENCOUNTER 2021-12-12 11:48 | Outpatient (CLI) | payer MEDICARE, OTHER | END 2021-12-12 11:49 | disposition home or self-care (01) | LOC: LAB.S 11:48 | PROVIDERS: ATTEND Pharmacist | DX: Z79.01 Long term (current) use of anticoagulants (principal); D68.2 Hereditary deficiency of other clotting factors; I48.0 Paroxysmal atrial fibrillation; I27.82 Chronic pulmonary embolism; I82.5Z9 Chronic embolism and thrombosis of unspecified deep veins of unspecified distal lower extremity; D68.62 Lupus anticoagulant syndrome | CPT/HCPCS: 36416; 85610 ==

== ENCOUNTER 2021-12-28 11:44 | Outpatient (CLI) | payer MEDICARE, OTHER | END 2021-12-28 11:45 | disposition home or self-care (01) | LOC: LAB.S 11:44 | PROVIDERS: ATTEND Pharmacist | DX: I48.0 Paroxysmal atrial fibrillation (principal); Z79.01 Long term (current) use of anticoagulants; D68.2 Hereditary deficiency of other clotting factors; I27.82 Chronic pulmonary embolism; I82.5Z9 Chronic embolism and thrombosis of unspecified deep veins of unspecified distal lower extremity; D68.62 Lupus anticoagulant syndrome | CPT/HCPCS: 36416; 85610 ==

== ENCOUNTER 2022-01-16 11:38 | Outpatient (CLI) | payer MEDICARE, OTHER | END 2022-01-16 11:39 | disposition home or self-care (01) | LOC: LAB.S 11:38 | PROVIDERS: ATTEND Pharmacist | DX: I48.0 Paroxysmal atrial fibrillation (principal); Z79.01 Long term (current) use of anticoagulants; D68.2 Hereditary deficiency of other clotting factors; I27.82 Chronic pulmonary embolism; I82.5Z9 Chronic embolism and thrombosis of unspecified deep veins of unspecified distal lower extremity; D68.62 Lupus anticoagulant syndrome | CPT/HCPCS: 36416; 85610 ==

== ENCOUNTER 2022-03-20 14:34 | Outpatient (CLI) | payer MEDICARE, OTHER | END 2022-03-20 14:35 | disposition home or self-care (01) | LOC: LAB.S 14:34 | PROVIDERS: ATTEND Pharmacist Ambulatory Care | DX: D68.2 Hereditary deficiency of other clotting factors (principal); I82.5Z9 Chronic embolism and thrombosis of unspecified deep veins of unspecified distal lower extremity; I48.0 Paroxysmal atrial fibrillation | CPT/HCPCS: 36416; 85610 ==

== ENCOUNTER 2022-04-18 08:02 | Outpatient (CLI) | payer MEDICARE, OTHER | END 2022-04-18 08:03 | disposition home or self-care (01) | LOC: LAB.S 08:02 | PROVIDERS: ATTEND Pharmacist Ambulatory Care | DX: D68.2 Hereditary deficiency of other clotting factors (principal); I82.5Z9 Chronic embolism and thrombosis of unspecified deep veins of unspecified distal lower extremity; I48.0 Paroxysmal atrial fibrillation | CPT/HCPCS: 36416; 85610 ==

== ENCOUNTER 2022-06-11 11:12 | Outpatient (CLI) | payer MEDICARE, OTHER | END 2022-06-11 11:13 | disposition home or self-care (01) | LOC: LAB.S 11:12 | PROVIDERS: ATTEND Pharmacist Ambulatory Care | DX: D68.2 Hereditary deficiency of other clotting factors (principal); I82.5Z9 Chronic embolism and thrombosis of unspecified deep veins of unspecified distal lower extremity; I48.0 Paroxysmal atrial fibrillation | CPT/HCPCS: 36416; 85610 ==

== ENCOUNTER 2022-08-02 10:55 | Outpatient (CLI) | payer MEDICARE, OTHER | END 2022-08-02 10:56 | disposition home or self-care (01) | LOC: LAB.S 10:55 | PROVIDERS: ATTEND Pharmacist Ambulatory Care | DX: D68.2 Hereditary deficiency of other clotting factors (principal); I82.5Z9 Chronic embolism and thrombosis of unspecified deep veins of unspecified distal lower extremity; I48.0 Paroxysmal atrial fibrillation | CPT/HCPCS: 36416; 85610 ==

== ENCOUNTER 2022-10-02 09:16 | Outpatient (CLI) | payer MEDICARE, OTHER | END 2022-10-02 09:17 | disposition home or self-care (01) | LOC: LAB.S 09:16 | PROVIDERS: ATTEND Pharmacist Ambulatory Care | DX: D68.2 Hereditary deficiency of other clotting factors (principal); I82.5Z9 Chronic embolism and thrombosis of unspecified deep veins of unspecified distal lower extremity; I48.0 Paroxysmal atrial fibrillation | CPT/HCPCS: 36416; 85610 ==

== ENCOUNTER 2022-10-30 09:23 | Outpatient (CLI) | payer MEDICARE, OTHER | END 2022-10-30 09:24 | disposition home or self-care (01) | LOC: LAB.S 09:23 | PROVIDERS: ATTEND Pharmacist | DX: Z79.01 Long term (current) use of anticoagulants (principal); D68.2 Hereditary deficiency of other clotting factors; D68.62 Lupus anticoagulant syndrome; I82.5Z9 Chronic embolism and thrombosis of unspecified deep veins of unspecified distal lower extremity; I27.82 Chronic pulmonary embolism; I48.0 Paroxysmal atrial fibrillation | CPT/HCPCS: 36416; 85610 ==

== ENCOUNTER 2022-11-04 07:45 | Outpatient (CLI) | payer MEDICARE, OTHER ==
[2022-11-04 15:39] LABS: CALCIUM 8.1 mg/dL (8.5-10.3); CREATININE 1.4 mg/dL (0.6-1.2); POTASSIUM 4.4 mmol/L (3.5-5.0)
== END 2022-11-04 07:46 | disposition home or self-care (01) ==
LOC: LAB.S 07:45
PROVIDERS: ATTEND Student in an Organized Health Care Education/Training Program
DX: D68.2 Hereditary deficiency of other clotting factors (principal); I82.5Z9 Chronic embolism and thrombosis of unspecified deep veins of unspecified distal lower extremity; I48.0 Paroxysmal atrial fibrillation
CPT/HCPCS: 36415; 80048; 85610

== ENCOUNTER 2022-11-14 08:10 | Outpatient (CLI) | payer MEDICARE, OTHER ==
[2022-11-14 14:49] LABS: INR 1.2 (0.8-1.2); PT - PROTHROMBIN TIME 13.1 secs (9.9-12.6)
== END 2022-11-14 08:11 | disposition home or self-care (01) ==
LOC: LAB.S 08:10
PROVIDERS: ATTEND Student in an Organized Health Care Education/Training Program
DX: D68.2 Hereditary deficiency of other clotting factors (principal); I82.5Z9 Chronic embolism and thrombosis of unspecified deep veins of unspecified distal lower extremity; I48.0 Paroxysmal atrial fibrillation
CPT/HCPCS: 36415; 36416; 85610

== ENCOUNTER 2022-11-18 07:26 | Outpatient (CLI) | payer MEDICARE, OTHER ==
[2022-11-18 14:33] LABS: PT - PROTHROMBIN TIME 21.4 secs (9.9-12.6)
== END 2022-11-18 07:27 | disposition home or self-care (01) ==
LOC: LAB.S 07:26
PROVIDERS: ATTEND Student in an Organized Health Care Education/Training Program
DX: D68.2 Hereditary deficiency of other clotting factors (principal); I82.5Z9 Chronic embolism and thrombosis of unspecified deep veins of unspecified distal lower extremity; I48.0 Paroxysmal atrial fibrillation
CPT/HCPCS: 36415; 36416; 85610

== ENCOUNTER 2022-11-27 10:00 | Outpatient (CLI) | payer MEDICARE, OTHER | END 2022-11-27 10:01 | disposition home or self-care (01) | LOC: LAB.S 10:00 | PROVIDERS: ATTEND Student in an Organized Health Care Education/Training Program | DX: D68.2 Hereditary deficiency of other clotting factors (principal); I82.5Z9 Chronic embolism and thrombosis of unspecified deep veins of unspecified distal lower extremity; I48.0 Paroxysmal atrial fibrillation | CPT/HCPCS: 36416; 85610 ==

== ENCOUNTER 2022-12-05 07:41 | Outpatient (CLI) | payer MEDICARE, OTHER ==
[2022-12-05 14:41] LABS: BASOPHILS # (AUTO) 0.1 10^3/uL (0.0-0.1); BASOPHILS % (AUTO) 1.2 %; EOSINOPHILS # (AUTO) 0.1 10^3/uL (0.0-0.7); EOSINOPHILS % (AUTO) 2.4 %; HCT - HEMATOCRIT 39.7 % (42.0-52.0); HGB - HEMOGLOBIN 12.9 g/dL (14.0-18.0); LYMPHOCYTES # (AUTO) 1.3 10^3/uL (1.5-3.5); LYMPHOCYTES % (AUTO) 22.5 %; MEAN CORPUSCULAR HEMOGLOBIN 31.1 pg (27.0-31.0); MEAN CORPUSCULAR HGB CONC 32.5 g/dL (32.0-36.0); MEAN CORPUSCULAR VOLUME 95.7 fL (80.0-94.0); MONOCYTES # (AUTO) 0.6 10^3/uL (0.0-1.0); MONOCYTES % (AUTO) 9.6 %; NEUTROPHILS # (AUTO) 3.8 10^3/uL (1.5-6.6); NEUTROPHILS % (AUTO) 64.1 %; PLT - PLATELET COUNT 251 10^3/uL (130-450); RED BLOOD COUNT 4.15 10^6/uL (4.70-6.10); RED CELL DISTRIBUTION WIDTH 13.8 % (12.0-15.0); WHITE BLOOD COUNT 5.9 x10^3/uL (4.8-10.8)
[2022-12-05 14:51] LABS: BILIRUBIN,URINE NEGATIVE (NEGATIVE); GLUCOSE, URINE (UA) NEGATIVE (NEGATIVE); KETONES,URINE (UA) NEGATIVE (NEGATIVE); LEUKOCYTE ESTERASE, URINE NEGATIVE (NEGATIVE); NITRITE,URINE NEGATIVE (NEGATIVE); OCCULT BLOOD,URINE NEGATIVE (NEGATIVE); PH,URINE 5.5 PH (5.0-7.5); PROTEIN,URINE NEGATIVE (NEGATIVE); UROBILINOGEN,URINE 0.2 (NORMAL) E.U./dL (NORMAL)
[2022-12-05 14:57] LABS: INR 2.2 (0.8-1.2); PT - PROTHROMBIN TIME 23.8 secs (9.9-12.6)
[2022-12-05 15:05] LABS: PARTIAL THROMBOPLASTIN TIME 30.8 secs (24.9-33.3)
[2022-12-05 15:07] LABS: BACTERIA,URINE Rare /HPF (None Seen); CLARITY,URINE CLEAR (CLEAR); RBC,URINE 0-5 /HPF (0-5); SQUAMOUS EPITHELIAL CELL,UR RARE Squamous (<= Few); WBC,URINE 0-3 /HPF (0-3)
[2022-12-05 15:51] LABS: ALBUMIN 3.2 g/dL (3.2-5.5); BILIRUBIN,TOTAL 0.9 mg/dL (0.2-1.0); CALCIUM 8.3 mg/dL (8.5-10.3); CREATININE 1.5 mg/dL (0.6-1.2); TOTAL PROTEIN 6.5 g/dL (6.7-8.2)
[2022-12-05 16:12] LABS: POTASSIUM 4.4 mmol/L (3.5-5.0)
[2022-12-05 20:57] LABS: ESTIMATED AVERAGE GLUCOSE 114 mg/dL (70-100); HEMOGLOBIN A1c% 5.6 % (4.27-6.07)
== END 2022-12-05 07:42 | disposition home or self-care (01) ==
LOC: LAB.S 07:41
PROVIDERS: ATTEND Student in an Organized Health Care Education/Training Program
DX: Z01.818 Encounter for other preprocedural examination (principal); D68.2 Hereditary deficiency of other clotting factors; I82.5Z9 Chronic embolism and thrombosis of unspecified deep veins of unspecified distal lower extremity; I48.0 Paroxysmal atrial fibrillation; M54.16 Radiculopathy, lumbar region; M51.26 Other intervertebral disc displacement, lumbar region
CPT/HCPCS: 36415; 80053; 81001; 83036; 85025; 85610; 85730; 87086; 87640

== ENCOUNTER 2022-12-16 13:19 | Outpatient (CLI) | payer MEDICARE, OTHER | END 2022-12-16 13:20 | disposition home or self-care (01) | LOC: LAB.S 13:19 | PROVIDERS: ATTEND Pharmacist Ambulatory Care | DX: D68.2 Hereditary deficiency of other clotting factors (principal); I82.5Z9 Chronic embolism and thrombosis of unspecified deep veins of unspecified distal lower extremity; I48.0 Paroxysmal atrial fibrillation | CPT/HCPCS: 36416; 85610 ==

== ENCOUNTER 2022-12-26 09:30 | Outpatient (CLI) | payer MEDICARE, OTHER ==
[2022-12-26 14:41] LABS: INR 1.2 (0.8-1.2); PT - PROTHROMBIN TIME 12.7 secs (9.9-12.6)
== END 2022-12-26 09:31 | disposition home or self-care (01) ==
LOC: LAB.S 09:30
PROVIDERS: ATTEND Student in an Organized Health Care Education/Training Program
DX: D68.2 Hereditary deficiency of other clotting factors (principal); I82.5Z9 Chronic embolism and thrombosis of unspecified deep veins of unspecified distal lower extremity; I48.0 Paroxysmal atrial fibrillation
CPT/HCPCS: 36415; 85610

== ENCOUNTER 2022-12-30 07:40 | Outpatient (CLI) | payer MEDICARE, OTHER ==
[2022-12-30 14:49] LABS: INR 2.2 (0.8-1.2); PT - PROTHROMBIN TIME 23.6 secs (9.9-12.6)
== END 2022-12-30 07:41 | disposition home or self-care (01) ==
LOC: LAB.S 07:40
PROVIDERS: ATTEND Student in an Organized Health Care Education/Training Program
DX: D68.2 Hereditary deficiency of other clotting factors (principal); I82.5Z9 Chronic embolism and thrombosis of unspecified deep veins of unspecified distal lower extremity; I48.0 Paroxysmal atrial fibrillation
CPT/HCPCS: 36415; 36416; 85610

== ENCOUNTER 2023-01-30 13:08 | Outpatient (CLI) | payer MEDICARE, OTHER | END 2023-01-30 13:09 | disposition home or self-care (01) | LOC: LAB.S 13:08 | PROVIDERS: ATTEND Student in an Organized Health Care Education/Training Program | DX: D68.2 Hereditary deficiency of other clotting factors (principal); I82.5Z9 Chronic embolism and thrombosis of unspecified deep veins of unspecified distal lower extremity; I48.0 Paroxysmal atrial fibrillation | CPT/HCPCS: 36416; 85610 ==

== ENCOUNTER 2023-02-18 11:32 | Outpatient (CLI) | payer MEDICARE, OTHER | END 2023-02-18 11:33 | disposition home or self-care (01) | LOC: LAB.S 11:32 | PROVIDERS: ATTEND Student in an Organized Health Care Education/Training Program | DX: D68.2 Hereditary deficiency of other clotting factors (principal); I82.5Z9 Chronic embolism and thrombosis of unspecified deep veins of unspecified distal lower extremity; I48.0 Paroxysmal atrial fibrillation | CPT/HCPCS: 36416; 85610 ==

== ENCOUNTER 2023-03-19 14:07 | Outpatient (CLI) | payer MEDICARE, OTHER | END 2023-03-19 14:08 | disposition home or self-care (01) | LOC: LAB.S 14:07 | PROVIDERS: ATTEND Student in an Organized Health Care Education/Training Program | DX: D68.2 Hereditary deficiency of other clotting factors (principal); I82.5Z9 Chronic embolism and thrombosis of unspecified deep veins of unspecified distal lower extremity; I48.0 Paroxysmal atrial fibrillation | CPT/HCPCS: 36416; 85610 ==

== ENCOUNTER 2023-04-16 09:37 | Outpatient (CLI) | payer MEDICARE, OTHER | END 2023-04-16 09:38 | disposition home or self-care (01) | LOC: LAB.S 09:37 | PROVIDERS: ATTEND Pharmacist Ambulatory Care | DX: D68.2 Hereditary deficiency of other clotting factors (principal); I82.5Z9 Chronic embolism and thrombosis of unspecified deep veins of unspecified distal lower extremity; I48.0 Paroxysmal atrial fibrillation | CPT/HCPCS: 36416; 85610 ==

== ENCOUNTER 2023-05-27 13:52 | Outpatient (CLI) | payer MEDICARE, OTHER | END 2023-05-27 13:53 | disposition home or self-care (01) | LOC: LAB.S 13:52 | PROVIDERS: ATTEND Student in an Organized Health Care Education/Training Program | DX: D68.2 Hereditary deficiency of other clotting factors (principal); I82.5Z9 Chronic embolism and thrombosis of unspecified deep veins of unspecified distal lower extremity; I48.0 Paroxysmal atrial fibrillation | CPT/HCPCS: 36416; 85610 ==

== ENCOUNTER 2023-06-06 08:43 | Outpatient (CLI) | payer MEDICARE, OTHER | END 2023-06-06 08:44 | disposition home or self-care (01) | LOC: LAB.S 08:43 | PROVIDERS: ATTEND Student in an Organized Health Care Education/Training Program | DX: D68.2 Hereditary deficiency of other clotting factors (principal); I82.5Z9 Chronic embolism and thrombosis of unspecified deep veins of unspecified distal lower extremity; I48.0 Paroxysmal atrial fibrillation | CPT/HCPCS: 36416; 85610 ==

== ENCOUNTER 2023-08-04 10:17 | Outpatient (CLI) | payer MEDICARE, OTHER | END 2023-08-04 10:18 | disposition home or self-care (01) | LOC: LAB.S 10:17 | PROVIDERS: ATTEND Pharmacist Ambulatory Care | DX: D68.2 Hereditary deficiency of other clotting factors (principal); I82.5Z9 Chronic embolism and thrombosis of unspecified deep veins of unspecified distal lower extremity; I48.0 Paroxysmal atrial fibrillation | CPT/HCPCS: 36416; 85610 ==

== ENCOUNTER 2023-09-30 09:59 | Outpatient (CLI) | payer MEDICARE, OTHER | END 2023-09-30 10:00 | disposition home or self-care (01) | LOC: LAB.S 09:59 | PROVIDERS: ATTEND Student in an Organized Health Care Education/Training Program | DX: D68.2 Hereditary deficiency of other clotting factors (principal); I82.5Z9 Chronic embolism and thrombosis of unspecified deep veins of unspecified distal lower extremity; I48.0 Paroxysmal atrial fibrillation | CPT/HCPCS: 36416; 85610 ==

== ENCOUNTER 2023-11-05 09:07 | Outpatient (CLI) | payer MEDICARE, OTHER | END 2023-11-05 09:08 | disposition home or self-care (01) | LOC: LAB.S 09:07 | PROVIDERS: ATTEND Student in an Organized Health Care Education/Training Program | DX: D68.2 Hereditary deficiency of other clotting factors (principal); I82.5Z9 Chronic embolism and thrombosis of unspecified deep veins of unspecified distal lower extremity; I48.0 Paroxysmal atrial fibrillation | CPT/HCPCS: 36416; 85610 ==

== ENCOUNTER 2023-11-12 07:55 | Outpatient (CLI) | payer MEDICARE, OTHER | END 2023-11-12 07:56 | disposition home or self-care (01) | LOC: LAB.S 07:55 | PROVIDERS: ATTEND Student in an Organized Health Care Education/Training Program | DX: D68.2 Hereditary deficiency of other clotting factors (principal); I82.5Z9 Chronic embolism and thrombosis of unspecified deep veins of unspecified distal lower extremity; I48.0 Paroxysmal atrial fibrillation | CPT/HCPCS: 36416; 85610 ==

== ENCOUNTER 2023-11-19 08:12 | Outpatient (CLI) | payer MEDICARE, OTHER | END 2023-11-19 08:13 | disposition home or self-care (01) | LOC: LAB.S 08:12 | PROVIDERS: ATTEND Student in an Organized Health Care Education/Training Program | DX: D68.2 Hereditary deficiency of other clotting factors (principal); I82.5Z9 Chronic embolism and thrombosis of unspecified deep veins of unspecified distal lower extremity; I48.0 Paroxysmal atrial fibrillation | CPT/HCPCS: 36416; 85610 ==

== ENCOUNTER 2023-11-26 11:38 | Outpatient (CLI) | payer MEDICARE, OTHER | END 2023-11-26 11:39 | disposition home or self-care (01) | LOC: LAB.S 11:38 | PROVIDERS: ATTEND Pharmacist Ambulatory Care | DX: D68.2 Hereditary deficiency of other clotting factors (principal); I82.5Z9 Chronic embolism and thrombosis of unspecified deep veins of unspecified distal lower extremity; I48.0 Paroxysmal atrial fibrillation | CPT/HCPCS: 36416; 85610 ==

== ENCOUNTER 2023-12-03 10:53 | Outpatient (CLI) | payer MEDICARE, OTHER | END 2023-12-03 10:54 | disposition home or self-care (01) | LOC: LAB.S 10:53 | PROVIDERS: ATTEND Student in an Organized Health Care Education/Training Program | DX: D68.2 Hereditary deficiency of other clotting factors (principal); I82.5Z9 Chronic embolism and thrombosis of unspecified deep veins of unspecified distal lower extremity; I48.0 Paroxysmal atrial fibrillation | CPT/HCPCS: 36416; 85610 ==

== ENCOUNTER 2023-12-05 10:33 | Outpatient (CLI) | payer MEDICARE, OTHER | END 2023-12-05 10:34 | disposition home or self-care (01) | LOC: LAB.S 10:33 | PROVIDERS: ATTEND Student in an Organized Health Care Education/Training Program | DX: D68.2 Hereditary deficiency of other clotting factors (principal); I82.5Z9 Chronic embolism and thrombosis of unspecified deep veins of unspecified distal lower extremity; I48.0 Paroxysmal atrial fibrillation | CPT/HCPCS: 36416; 85610 ==

== ENCOUNTER 2023-12-10 10:34 | Outpatient (CLI) | payer MEDICARE, OTHER | END 2023-12-10 10:35 | disposition home or self-care (01) | LOC: LAB.S 10:34 | PROVIDERS: ATTEND Student in an Organized Health Care Education/Training Program | DX: I48.0 Paroxysmal atrial fibrillation (principal); Z79.01 Long term (current) use of anticoagulants; D68.2 Hereditary deficiency of other clotting factors; I82.5Z9 Chronic embolism and thrombosis of unspecified deep veins of unspecified distal lower extremity | CPT/HCPCS: 36416; 85610 ==

== ENCOUNTER 2023-12-17 09:31 | Outpatient (CLI) | payer MEDICARE, OTHER | END 2023-12-17 09:32 | disposition home or self-care (01) | LOC: LAB.S 09:31 | PROVIDERS: ATTEND Student in an Organized Health Care Education/Training Program | DX: D68.2 Hereditary deficiency of other clotting factors (principal); I82.5Z9 Chronic embolism and thrombosis of unspecified deep veins of unspecified distal lower extremity; I48.0 Paroxysmal atrial fibrillation | CPT/HCPCS: 36416; 85610 ==

== ENCOUNTER 2023-12-24 13:39 | Outpatient (CLI) | payer MEDICARE, OTHER | END 2023-12-24 13:40 | disposition home or self-care (01) | LOC: LAB.S 13:39 | PROVIDERS: ATTEND Pharmacist Ambulatory Care | DX: D68.2 Hereditary deficiency of other clotting factors (principal); I48.0 Paroxysmal atrial fibrillation; I82.5Z9 Chronic embolism and thrombosis of unspecified deep veins of unspecified distal lower extremity | CPT/HCPCS: 36416; 85610 ==

== ENCOUNTER 2024-01-07 10:49 | Outpatient (CLI) | payer MEDICARE, OTHER | END 2024-01-07 10:50 | disposition home or self-care (01) | LOC: LAB.S 10:49 | PROVIDERS: ATTEND Pharmacist Ambulatory Care | DX: D68.2 Hereditary deficiency of other clotting factors (principal); I82.5Z9 Chronic embolism and thrombosis of unspecified deep veins of unspecified distal lower extremity; I48.0 Paroxysmal atrial fibrillation | CPT/HCPCS: 36416; 85610 ==

== ENCOUNTER 2024-01-28 07:10 | Outpatient (CLI) | payer MEDICARE, OTHER | END 2024-01-28 07:11 | disposition home or self-care (01) | LOC: LAB.S 07:10 | PROVIDERS: ATTEND Student in an Organized Health Care Education/Training Program | DX: D68.2 Hereditary deficiency of other clotting factors (principal); I82.5Z9 Chronic embolism and thrombosis of unspecified deep veins of unspecified distal lower extremity; I48.0 Paroxysmal atrial fibrillation | CPT/HCPCS: 36416; 85610 ==

== ENCOUNTER 2024-02-27 11:00 | Outpatient (CLI) | payer MEDICARE, OTHER | END 2024-02-27 11:01 | disposition home or self-care (01) | LOC: LAB.S 11:00 | PROVIDERS: ATTEND Student in an Organized Health Care Education/Training Program | DX: D68.2 Hereditary deficiency of other clotting factors (principal); I82.5Z9 Chronic embolism and thrombosis of unspecified deep veins of unspecified distal lower extremity; I48.0 Paroxysmal atrial fibrillation | CPT/HCPCS: 36416; 85610 ==

== ENCOUNTER 2024-03-12 09:14 | Outpatient (CLI) | payer MEDICARE, OTHER | END 2024-03-12 09:15 | disposition home or self-care (01) | LOC: LAB.S 09:14 | PROVIDERS: ATTEND Student in an Organized Health Care Education/Training Program | DX: D68.2 Hereditary deficiency of other clotting factors (principal); I82.5Z9 Chronic embolism and thrombosis of unspecified deep veins of unspecified distal lower extremity; I48.0 Paroxysmal atrial fibrillation | CPT/HCPCS: 36416; 85610 ==